=== PATIENT | female | born 2005 | race Hispanic/Latino ===

== ENCOUNTER 2025-07-09 14:57 | Inpatient (IN) | payer BC, OTHER ==
[2025-07-09 15:08] VITALS: BMI 28.5
[2025-07-09] MEDS ORDERED: hydrALAZINE 20 MG/ML VIAL SLOW IVP PRN ×2 (15:23→20:44)
[2025-07-09 17:16] LABS: Glucose, Urine (Dipstick) Normal (Negative); Leukocyte Negative (Negative); Protein, Urine (Dipstick) Negative (Neg-Trace); Specific Gravity, Urine 1.010 (1.005-1.030)
[2025-07-09 18:34] LABS: CAUTI Indications for Culture Pregnancy; WBC/HPF 0-3 HPF (0-3)
[2025-07-09 18:35] LABS: Bacteria/HPF None Seen HPF (None Seen); RBC/HPF None Seen HPF (0-3)
[2025-07-09 18:36] LABS: Urine Culture Reflex Yes Yes
[2025-07-09 20:19] LABS: FFN Internal QC Analyzer PASS (PASS); FFN Internal QC Cassette PASS (PASS); Fetal Fibronectin POSITIVE (Negative)
[2025-07-09] MEDS ORDERED: Acetaminophen 500 MG TAB PO PRN (20:44)
[2025-07-09] MEDS ORDERED: Ondansetron PF 4 MG/2 ML Vial IVP PRN (20:44)
[2025-07-09] MEDS ORDERED: Oxytocin 30 units/NS 500 ML 500 ML IV SCH (21:00)
[2025-07-10] MEDS: Acetaminophen 500 MG TAB PO SCH (10:22)
[2025-07-11 04:22] VITALS: BP 99/52; TEMP 97.9
[2025-07-12 02:26] LABS: Group B Streptococcus by PCR INDETERMINATE (NotDetected)
== END 2025-07-11 11:40 | disposition home health service (06) | DRG 833 ==
LOC: CSHLD/OP 14:57 → CSHLD 20:31 → CSHANTE 07-10 20:40
PROVIDERS: ADMIT Obstetrics & Gynecology; ATTEND Obstetrics & Gynecology
DX: O60.02 Preterm labor without delivery, second trimester (principal); O99.820 Streptococcus B carrier state complicating pregnancy; Z3A.20 20 weeks gestation of pregnancy
CPT/HCPCS: 76817; 81001; 82731; 87077; 87086; 87480; 87510; 87653; 87660; 99285; J0702